=== PATIENT | male | born 1960 | race Native Hawaiian/Other Pacific Islander ===

== ENCOUNTER 2018-03-21 08:54 | Outpatient (CLI) | payer BC ==
[~2018-03-21 08:54] MED LIST: ASPIRIN325 M2 OR; CARV12.5 PO; LOSA50TA PO; METF500T PO; NEXIUM40 M1 PO; PERCOCET1 TA3 PO; SERT100T PO; ZOCOR80 MG OR
== END 2018-03-21 19:56 | disposition home or self-care (01) ==
LOC: RAD 08:54
DX: M25.531 Pain in right wrist (principal)